=== PATIENT | female | born 1985 | race Caucasian/White ===

== ENCOUNTER 2020-05-30 10:41 | Emergency (ER) | payer OTHER ==
[~2020-05-30] VITALS: Ht 160 cm; Wt 81.6 kg
[2020-05-30] MEDS ORDERED: NAPROXEN375 MG PO (13:49)
[2020-05-30] MEDS ORDERED: PEPCID20 MG PO (13:49)
== END 2020-05-30 14:30 | disposition home or self-care (01) ==
LOC: ER 10:41
DX: S60.211A Contusion of right wrist, initial encounter (principal); S40.011A Contusion of right shoulder, initial encounter; S60.221A Contusion of right hand, initial encounter; W18.39XA Other fall on same level, initial encounter; Y93.89 Activity, other specified; Y92.098 Other place in other non-institutional residence as the place of occurrence of the external cause; Y99.8 Other external cause status

== ENCOUNTER → 2020-05-31 11:57 | Outpatient (CLI) | payer OTHER ==
[~2020-05-31 11:57] MED LIST: NAPROXEN375 MG PO; PEPCID20 MG PO
== END | disposition home or self-care (01) ==
LOC: LAB 11:57
PROVIDERS: ATTEND Internal Medicine Infectious Disease
DX: Z20.828 Contact with and (suspected) exposure to other viral communicable diseases (principal)

== ENCOUNTER 2020-06-02 15:04 | Outpatient (CLI) | payer OTHER | END 2020-06-02 15:10 | disposition HB | LOC: RAD 15:04 | PROVIDERS: ATTEND Internal Medicine Infectious Disease | DX: S62.304A Unspecified fracture of fourth metacarpal bone, right hand, initial encounter for closed fracture (principal) ==

== ENCOUNTER 2021-03-16 14:25 | Outpatient (CLI) | payer OTHER | END 2021-03-16 14:45 | disposition home or self-care (01) | LOC: PPH VACUNA 14:25 | PROVIDERS: ATTEND Emergency Medicine Pediatric Emergency Medicine | DX: Z23 Encounter for immunization (principal) ==